=== PATIENT | male | born 1995 | race African-American/Black ===

== ENCOUNTER 2018-10-23 14:11 | Emergency (ER) | payer MEDICAID, OTHER ==
[~2018-10-23] VITALS: Ht 185.4 cm; Wt 81.8 kg
[2018-10-23] MEDS ORDERED: IBUPROFEN 800 MG TABLET PO ONE (16:15)
[2018-10-23 17:41] VITALS: BP 141/82
== END 2018-10-23 17:42 | disposition home or self-care (01) ==
LOC: EMS 14:11
DX: S90.31XA Contusion of right foot, initial encounter (principal); S60.221A Contusion of right hand, initial encounter; F17.210 Nicotine dependence, cigarettes, uncomplicated; F12.90 Cannabis use, unspecified, uncomplicated; Z88.1 Allergy status to other antibiotic agents; V23.4XXA Motorcycle driver injured in collision with car, pick-up truck or van in traffic accident, initial encounter; Y93.55 Activity, bike riding; Y92.488 Other paved roadways as the place of occurrence of the external cause; Y99.8 Other external cause status
CPT/HCPCS: 99406